=== PATIENT | female | born 1945 | race African-American/Black ===

== ENCOUNTER 2021-09-22 09:34 | Emergency (ER) | payer BC ==
[~2021-09-22] VITALS: Ht 170.2 cm; Wt 72.0 kg
[2021-09-22 10:53] LABS: BASOPHILS % 0.1 % (0.0-2.0); HEMATOCRIT. 31.7 % (36.0-48.0); LYMPHOCYTES % 11.8 % (20.0-50.0); MEAN CORPUSCULAR VOLUME 78.9 fL (81.0-99.0); MEAN PLATELET VOLUME 8.6 fl (7.4-10.4); MONOCYTES % 6.2 % (2.0-8.0); NEUTROPHILS % 81.9 % (40.0-76.0); PLATELET 199 x1000/uL (130-400); RED BLOOD CELL COUNT 4.02 mill/uL (4.2-5.4); RED CELL DISTRIBUTION WIDTH 19.6 % (11.6-14.6)
[2021-09-22 10:58] LABS: CHLORIDE 100 mEq/L (98-107)
[2021-09-22] MEDS ORDERED: INSULIN REGULAR (HUMULIN R) 300UNITS/3ML VIAL SUBCUT ONE (11:30)
[2021-09-22 12:40] VITALS: BP 128/68
== END 2021-09-22 13:26 | disposition home or self-care (01) ==
LOC: ER 09:48
DX: R58 Hemorrhage, not elsewhere classified (principal); E11.65 Type 2 diabetes mellitus with hyperglycemia
CPT/HCPCS: 36415; 80048; 82962; 85025; 99283; J1815

== ENCOUNTER 2022-04-18 12:49 | Inpatient (IN) | payer BC ==
[~2022-04-18] VITALS: Ht 166.4 cm; Wt 77.6 kg
[2022-04-18 14:12] LABS: BASOPHILS % 0.6 % (0.0-2.0); EOSINOPHILS % 1.1 % (0.0-5.0); HEMATOCRIT. 34.7 % (36.0-48.0); HEMOGLOBIN. 10.7 g/dL (12.0-16.0); LYMPHOCYTES % 13.6 % (20.0-50.0); MEAN CORPUSCULAR VOLUME 78.2 fL (81.0-99.0); MEAN PLATELET VOLUME 7.5 fl (7.4-10.4); MONOCYTES % 6.9 % (2.0-8.0); NEUTROPHILS % 77.8 % (40.0-76.0); PLATELET 274 x1000/uL (130-400); RED BLOOD CELL COUNT 4.44 mill/uL (4.2-5.4); RED CELL DISTRIBUTION WIDTH 20.4 % (11.6-14.6)
[2022-04-18 14:32] LABS: CHLORIDE 106 mEq/L (98-107)
[2022-04-18] MEDS ORDERED: VANCOMYCIN 1GM PMX (XELLIA) 200 ML IV STA (17:19)
[2022-04-18] MEDS ORDERED: VANCOMYCIN 1G PREMIX 200 ML IV STA (17:23)
[2022-04-18] MEDS ORDERED: PIPERACILLIN/TAZOBACTAM 3.375GM/50ML PREMIX IV STA (17:28)
[2022-04-18] MEDS ORDERED: DEXTROSE 50% WATER 50ML SYRINGE IV ONE (17:30)
[2022-04-18] MEDS ORDERED: CLONIDINE 0.1MG TABLET PO PRN (19:30)
[2022-04-18] MEDS ORDERED: IPRATROPIUM/ALBUTEROL 0.5-3(2.5)MG/3ML NEB HHN PRN (19:30)
[2022-04-18] MEDS ORDERED: DOCUSATE SODIUM 100MG CAPSULE PO PRN (19:30)
[2022-04-18] MEDS ORDERED: ACETAMINOPHEN 325MG TABLET PO PRN ×2 (19:30)
[2022-04-18] MEDS ORDERED: DEXTROSE 50% WATER 50ML SYRINGE IV PRN (19:30)
[2022-04-18] MEDS ORDERED: HYDROCODONE/ACETAMINOPHEN 5/325MG TABLET PO PRN (19:30)
[2022-04-18] MEDS ORDERED: HYDROCODONE/ACETAMINOPHEN 10/325MG TABLET PO PRN (19:30)
[2022-04-18] MEDS ORDERED: LORAZEPAM 0.5MG TABLET PO PRN (19:30)
[2022-04-18] MEDS ORDERED: ONDANSETRON HCL 4MG/2ML INJ IV PRN (19:30)
[2022-04-18] MEDS ORDERED: DEXTROSE 10% WATER 500 ML IV ONE (20:00)
[2022-04-18 20:17] LABS: T4 FREE 1.38 ng/dL (0.76-1.46)
[2022-04-18 20:46] LABS: CLARITY URINE CLEAR (CLEAR); COLOR URINE YELLOW (YELLOW); KETONES URINE NEGATIVE (NEGATIVE); LEUKOCYTE ESTERASE URINE NEGATIVE (NEGATIVE); NITRITE URINE NEGATIVE (NEGATIVE); OCCULT BLOOD URINE NEGATIVE (NEGATIVE); PROTEIN URINE TRACE (NEGATIVE); SPECIFIC GRAVITY URINE 1.015 (1.005-1.030)
[2022-04-18 20:57] LABS: *AMPHETAMINES SCREEN URINE NEGATIVE (NEGATIVE); *BARBITURATES SCREEN URINE NEGATIVE (NEGATIVE); *BENZODIAZEPINES SCREEN URINE NEGATIVE (NEGATIVE); *COCAINE SCREEN URINE NEGATIVE (NEGATIVE); CANNABINOID URINE SCREEN NEGATIVE (NEGATIVE); METHADONE URINE SCREEN NEGATIVE (NEGATIVE); OPIATES URINE SCREEN NEGATIVE (NEGATIVE); PHENCYCLIDINE URINE SCREEN NEGATIVE (NEGATIVE)
[2022-04-18] MEDS: INSULIN LISPRO 100 UNITS/ML SUBCUT SCH (21:00)
[2022-04-18] MEDS: BLOOD SUGAR DIAGNOSTIC STRIP TEST SCH (21:00)
[2022-04-18 23:52] VITALS: BP 137/77
[2022-04-19] VITALS (8 sets, daily range): BP systolic 112–127; BP diastolic 60–73
[2022-04-19] MEDS ORDERED: METF-416 MT (06:48)
[2022-04-19] MEDS ORDERED: METO-396 MT (06:48)
[2022-04-19] MEDS ORDERED: MIRT7.5T11 MT (06:48)
[2022-04-19] MEDS ORDERED: RIVA20TA MT (06:48)
[2022-04-19] MEDS ORDERED: MONT10TA21 MT (06:48)
[2022-04-19] MEDS ORDERED: ATOR40TA70 MT (06:48)
[2022-04-19] MEDS ORDERED: AMLO2.5T45 MT (06:48)
[2022-04-19] MEDS ORDERED: GABA-532 PO (06:48)
[2022-04-19] MEDS ORDERED: PANT40TA51 MT (06:48)
[2022-04-19] MEDS ORDERED: ONDA8TAB13 MT (06:48)
[2022-04-19] MEDS: BLOOD SUGAR DIAGNOSTIC STRIP TEST SCH ×2 (07:30→12:57)
[2022-04-19] MEDS: INSULIN LISPRO 100 UNITS/ML SUBCUT SCH ×2 (08:00→13:01)
[2022-04-19] MEDS ORDERED: METF-414 MT (11:28)
[2022-04-19] MEDS ORDERED: INSU100I28 SQ (11:28)
[2022-04-19] MEDS ORDERED: INSLIS SUBCUT (11:28)
== END 2022-04-19 17:54 | disposition home or self-care (01) | DRG 637 ==
LOC: ER 13:08 → 5EST 18:14 → ENRESERV 22:31
PROVIDERS: ADMIT Internal Medicine; ATTEND Internal Medicine
DX: E11.649 Type 2 diabetes mellitus with hypoglycemia without coma (principal); J18.9 Pneumonia, unspecified organism; E87.2 Acidosis; C17.9 Malignant neoplasm of small intestine, unspecified; E78.00 Pure hypercholesterolemia, unspecified; I10 Essential (primary) hypertension; F43.9 Reaction to severe stress, unspecified; D50.9 Iron deficiency anemia, unspecified; R74.01 Elevation of levels of liver transaminase levels; R43.2 Parageusia; R91.8 Other nonspecific abnormal finding of lung field
CPT/HCPCS: 36415; 71045; 80053; 80076; 80305; 81003; 82150; 82533; 82962; 83036; 83605; 84145; 84439; 84443; 84481; 84484; 85025; 93005; 99291; J1815; J2543; J3370